=== PATIENT | female | born 1990 | race Caucasian/White ===

== ENCOUNTER → 2018-03-10 | Outpatient (CLI) | payer BC ==
[~2018-03-10] MED LIST: LEVAQUIN500 MG PO; OMEPRAZOLE40 MG PO; PLAQUENIL200 MG PO; PREDNISONE5 MG PO; TAMIFLU75 MG PO; VIRTUSSIN AC PO
--- NOTE | 2018-03-10 12:19 | Diagnostic Imaging Report ---
PROCEDURE: Frontal and lateral views of the chest. COMPARISON: [facility], DX, CHEST 2 VIEWS, 04/14/2017, 18:52. Patients [facility], DX, CHEST 2 VIEWS, 02/04/2017, 6:16. INDICATIONS: pneumonia FINDINGS: Lines/tubes: None. Lungs: The lungs are mildly hypoinflated. There is no evidence of pneumonia or pulmonary edema. Pleura: There is no pleural effusion or pneumothorax. Heart and mediastinum: The cardiac silhouette remains moderately enlarged. Bones: No acute bony abnormality. IMPRESSION: 1. Moderate cardiomegaly without acute decompensation.. Viktoria Cheng M.D. Dictated by: Viktoria Cheng M.D. on 03/10/2018 at 12:21 Electronically approved by: Viktoria Cheng M.D. on 03/10/2018 at 12:21
== END ==
LOC: RAD 11:48
PROVIDERS: ATTEND Internal Medicine
DX: J18.8 Other pneumonia, unspecified organism (principal)
CPT/HCPCS: 71046

== ENCOUNTER → 2018-09-01 | Outpatient (CLI) | payer BC ==
--- NOTE | 2018-09-01 14:06 | Diagnostic Imaging Report ---
EXAM: XR CHEST 2 VIEWS DATE: 09/01/2018 1:19 PM INDICATION: Cough COMPARISON: 03/10/2018, no report available FINDINGS: Lines and Tubes: None Heart and Mediastinum: No acute cardiomediastinal findings. Lungs and Pleura: Low lung volumes. Probable basilar atelectasis, similar. Bones and Soft Tissues: No acute findings. IMPRESSION: 1. Probable basilar atelectasis. Correlation recommended, however. Signed by: Dr. Pipe Fregoso MD on 09/01/2018 2:03 PM
== END ==
LOC: RAD 13:12
PROVIDERS: ATTEND Internal Medicine
DX: J18.8 Other pneumonia, unspecified organism (principal)
CPT/HCPCS: 71046